=== PATIENT | male | born 1980 | race Caucasian/White ===

== ENCOUNTER 2017-01-25 17:00 | Inpatient (IN) | payer OTHER ==
[~2017-01-25] VITALS: Ht 177.8 cm; Wt 72.6 kg
--- NOTE | ~2017-01-25 | PN ---
Unit #: [id number] #: [id number] Patient: TON NEWBERRY [id number] [facility] [address] [place] [address] [id number] MR#: [id number] NAME: TON NEWBERRY ROOM: [facility] Age: 36 Sex: M Admission Date: 01/25/2017 : 1980 Attending Physician: Isidoro Hairston M.D. Admitting Physician: Isidoro Hairston M.D. Primary Care Physician: Generic Doctor Not In System [facility] PROGRESS NOTES DATE 01/27/2017 DISCUSSION Ton is a 36-year-old male, seen on 01/27/2017. The patient interviewed, chart reviewed, and obtained information from the nursing staff. The patient continues to be isolative, flat affect, sad, dysphoric. The patient reports medication is helping him but still sad and depressed. REVIEW OF SYSTEMS Complete review of systems unremarkable. MENTAL STATUS EXAMINATION General appearance: Patient dressed casually. Attention span and concentration, fair. Oriented in time, place, and person. Mood and affect, dysphoric, flat, passive SI, denied any homicidal ideation. Recent and remote memory, poor. Insight and judgment, poor. DIAGNOSES 1. Major depressive disorder, recurrent, severe. 2. Rule out bipolar mood disorder. 3. Amphetamine abuse, moderate. ASSESSMENT/PLAN Advised to continue with the current medication and therapeutic protocol, if needed consider further adjustment of medication. Dictated by... Yen Sylvester/keila TD: 01/29/2017 05:57 JOB #: [id number] Unit #: [id number] #: [id number] Patient: TON NEWBERRY PEAANGELLA PROGRESS NOTES Page 1 of 1 X Isidoro Hairston MD X PROGRESS NOTE
--- NOTE | ~2017-01-25 | PN ---
Unit #: [id number] #: [id number] Patient: TON NEWBERRY [id number] [facility] [address] [place] [address] [id number] I MR#: [id number] NAME: TON NEWBERRY ROOM: [facility] Age: 36 Sex: M Admission Date: 01/25/2017 : 1980 Attending Physician: Isidoro Hairston M.D. Admitting Physician: Isidoro Hairston M.D. Primary Care Physician: Generic Doctor Not In System [facility] PROGRESS NOTES DATE OF SERVICE 01/29/2017 DISCUSSION Ton Newberry is a 36-year-old male seen on 01/29/2017. Patient interviewed, chart reviewed. Obtained information from nursing staff. Patient was compliant and cooperative. Mood sad, dysphoric. Flat affect, guarded. Patient was able to maintain safe behavior. No aggression. Complete review of systems unremarkable. MENTAL STATUS EXAMINATION General appearance, patient dressed casually. Attention span and concentration fair. Oriented to time, place and person. Mood and affect labile. Speech monotone. Thought process concrete. Patient denied any thoughts of harming self or others. Recent and remote memory poor. Insight and judgement poor. DIAGNOSES 1. Major depressive disorder, recurrent severe. 2. Rule out bipolar mood disorder, amphetamine abuse disorder. ASSESSMENT/PLAN Advise to continue with current medication and therapeutic protocol. If needed consider further adjustment of medication. Dictated by... Yen Sylvester/waqas TD: 01/30/2017 23:38 JOB #: [id number] Unit #: [id number] #: [id number] Patient: TON NEWBERRY PROGRESS NOTES Page 1 of 1 X Isidoro Hairston MD PROGRESS NOTE
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
--- NOTE | ~2017-01-25 | PN ---
Unit #: [id number] #: [id number] Patient: FEDERICA NEWBERRY [id number] [facility] [address] [place] [address] [id number] I MR#: [id number] NAME: FEDERICA NEWBERRY ROOM: [facility] Age: 36 Sex: M Admission Date: 01/25/2017 : 1980 Attending Physician: Isidoro Hairston M.D. Admitting Physician: Isidoro Hairston M.D. Primary Care Physician: Generic Doctor Not In System [facility] PROGRESS NOTES DATE 01/27/2017 DISCUSSION Mr. Camilo is a 36-year-old male. The patient interviewed, chart reviewed, and obtained information from the nursing staff. The patient continues to report feeling sad, depressed, withdrawn, isolative, guarded. The patient still having passive SI. REVIEW OF SYSTEMS Complete review of systems unremarkable. MENTAL STATUS EXAMINATION General appearance: Patient dressed casually. Attention span and concentration, fair. Oriented in time, place, and person. Mood and affect, sad and depressed. Speech, monotone. Thought process, concrete. The patient reported having passive SI, denied any homicidal ideation, guarded. Recent and remote memory, poor. Insight and judgment, poor. DIAGNOSES 1. Major depressive disorder, recurrent, severe. 2. Rule out bipolar mood disorder. ASSESSMENT/PLAN Advised to continue with the current medication, if needed consider further adjustment of medication. Dictated by... Yen Sylvester/keila TD: 01/28/2017 11:04 JOB #: [id number] Unit #: [id number] #: [id number] Patient: FEDERICA NEWBERRY [facility] PROGRESS NOTES Page 1 of 1 X Isidoro Hairston MD PROGRESS NOTE
--- NOTE | ~2017-01-25 | HP ---
Unit #: [id number] #: [id number] Patient: FEDERICA NEWBERRY [id number] [place] [address] [id number] I MR#: [id number] NAME: FEDERICA NEWBERRY ROOM: [facility] Age: 36 Sex: M Admission Date: 01/25/2017 : 1980 Attending Physician: Isidoro Hairston M.D. Admitting Physician: Isidoro Hairston M.D. Primary Care Physician: Generic Doctor Not In System HISTORY AND PHYSICAL HISTORY OF PRESENT ILLNESS The patient is a 36-year-old male admitted to [address] [place] [address] on 01/25/2017 for methamphetamine abuse. PAST MEDICAL HISTORY 1. Recent right wrist laceration from punching a window. 2. Diabetes. 3. Hypertension. 4. GERD. PAST SURGICAL HISTORY 1. Splenectomy. 2. Tonsillectomy. 3. Right wrist debridement. SOCIAL HISTORY He is unemployed and homeless. He smokes 1/2 pack of cigarettes daily and uses methamphetamines on a daily basis. FAMILY MEDICAL HISTORY Noncontributory. ALLERGIES Lisinopril CURRENT MEDICATIONS 1. Gabapentin 2. Metformin 3. Metoprolol 4. Omeprazole 5. Clonidine 6. Ibuprofen 7. Vistaril 8. Zyprexa 9. Trazodone REVIEW OF SYSTEMS CONSTITUTIONAL: No fever or chills. HEENT: Denies any sore throat, ear pain or runny nose. CARDIOVASCULAR: Denies chest pain, irregular heart rhythm or palpitations. CHEST: Denies shortness of breath or cough. No hemoptysis. GASTROINTESTINAL: Denies nausea, vomiting, diarrhea or chronic constipation. Unit #: [id number] #: [id number] Patient: FEDERICA NEWBERRY ENDOCRINE: Denies history of increased thirst or urination. No recent significant weight loss or gain. GENITOURINARY: Denies dysuria, frequency, or hematuria. SKIN: Denies any rashes. HEMATOLOGIC: Denies history of increased bleeding or bruising. MUSCULOSKELETAL: Denies any hot, swollen joints. No generalized muscle pain. NEUROLOGIC: Denies problems with vision or speech. No frequent, severe headaches. No numbness, tingling or weakness in any extremities. Denies loss of bladder or bowel control. PHYSICAL EXAM GENERAL: He is awake, alert and oriented in no acute distress. VITAL SIGNS: Temperature 98.1, heart rate 88, respiration 18, blood pressure 140/76. HEIGHT: 5'10". WEIGHT: 160 pounds. SKIN: Warm and dry without rash or lesion. HEENT: Normocephalic. TMs not viewed. Oral and nasal passages clear. Conjunctivae clear. PERRLA. EOMs intact. NECK: Supple without lymphadenopathy or thyromegaly. HEART: Regular rate and rhythm without murmur. LUNGS: Clear. ABDOMEN: Soft, nontender. : Not done. EXTREMITIES: He has a cast wrapped in a VAN wrap on his right arm. NEUROLOGICAL: Grossly within normal limits. Cranial Nerves: II: Visual fountain are intact. III, IV AND : Extraocular movements are intact. Pupils are equal, round and reactive to light. V: Facial sensation is grossly normal. VII: Facial movements and expression are normal. VIII: Auditory acuity grossly intact. IX, X: Uvula is midline. Phonation is normal. XI: Patient shrugs shoulders and turns head normally. XII: Tongue protrudes in the midline. Sensory and Motor Function: Sensory and motor sensation is grossly normal. Motor: moves all extremities well. IMPRESSION 1. Psychiatric admission. 2. Methamphetamine abuse. 3. Nicotine dependence. 4. Right wrist laceration. 5. Diabetes. 6. Hypertension. 7. GERD. RECOMMENDATIONS Psychiatric per psychiatrist. MEDICAL: No contraindication to participate in facility activities. MEDICAL PROGNOSIS Fair. MEDICAL CONDITION Stable. Unit #: [id number] #: [id number] Patient: FEDERICA NEWBERRY Dictated by... Evie Storey/waqas TD: 01/27/2017 00:53 JOB #: [id number] HISTORY AND PHYSICAL Page 1 of 1 X BENEDICTO SIDHU APRN HISTORY AND PHYSICAL
--- NOTE | ~2017-01-25 | CO ---
Unit #: [id number] #: [id number] Patient: FEDERICA NEWBERRY [id number] [facility] [address] [place] [address] [id number] I MR#: [id number] NAME: FEDERICA NEWBERRY ROOM: [facility] Age: 36 Sex: M Admission Date: 01/25/2017 : 1980 Attending Physician: Isidoro Hairston M.D. Primary Care Physician: Chas Doctor Not In System Consultation Date: 01/26/2017 CONSULTATION REPORT ORDERING PROVIDER Dr. Hairston. REASON FOR CONSULTATION Diabetes, hypertension, and pain in his right arm. SUBJECTIVE The patient reports he is type 2 diabetic and has been on metformin for several years. He denies missing any doses. He cannot tell me when his last doctor's appointment was and does not know when his last A1c was done. He also reports that he has a blood pressure that is controlled on clonidine and metoprolol. Blood pressure on admission was 140/76. Finally, he reports that about 1 week ago, he punched his right arm through a window. He went to [facility], where x-rays were done and debridement was completed. He is supposed to follow up with a hand surgeon in a week. OBJECTIVE His right arm is casted with an Jonathan wrap around it, that was not removed. The remainder of his examination was unremarkable. Heart was regular rate and rhythm. Vital signs again show blood pressure of 140/76. This is on his medication. ASSESSMENT 1. Diabetes. 2. Hypertension. 3. Right arm injury. PLAN The patient was continued on his home medications of metformin, clonidine, and metoprolol. He will need follow up with the hand surgeon in one week and social work needs to get him that appointment. We will alternate ibuprofen and Tylenol for pain and cover the cast with a plastic bag to shower and otherwise keep it clean. Dictated by... Evie Storey/jemma TD: 01/27/2017 02:24 Unit #: [id number] #: [id number] Patient: FEDERICA NEWBERRY JOB #: [id number] CONSULTATION REPORT Page 1 of 1 X BENEDICTO SIDHU APRN CONSULTATION REPORT
--- NOTE | ~2017-01-25 | DS ---
Unit #: [id number] #: [id number] Patient: FEDERICA NEWBERRY [id number] [facility] [address] [place] [address] [id number] I MR#: [id number] NAME: FEDERICA NEWBERRY ROOM: [facility] Age: 36 Sex: M Admission Date: 01/25/2017 : 1980 Discharge Date: 01/30/2017 Attending Physician: Isidoro Hairston M.D. Primary Care Physician: Generic Doctor Not In System DISCHARGE SUMMARY REASON FOR ADMISSION Depression. DIAGNOSTIC STUDIES LABORATORY DATA: Unremarkable except urine drugs screen positive for amphetamine. HOSPITAL COURSE The patient was admitted to inpatient unit on January 25 and discharged on 01/30/2017. The patient was treated with group therapy, individual therapy, and medication management. The patient was responsive to treatment and showed improvement. Subsequently, the patient was discharged with a plan to follow up in outpatient program. DISCHARGE MEDICATIONS 1. Neurontin 600 mg 3 times a day for chronic pain. The patient was given 2 weeks' supply only. 2. Glucophage XL 500 mg twice daily for diabetes. 3. Lopressor 25 mg daily for hypertension. 4. Protonix 40 mg daily for GERD. 5. Catapres 0.3 mg 3 times a day for hypertension. 6. Motrin 600 mg 3 times a day for pain, 1-week supply. 7. Vistaril 25 mg 3 times a day for anxiety. 8. Zyprexa 10 mg at bedtime for mood stabilization. 9. Desyrel 50 mg at bedtime for sleep p.r.n. 10. Celexa 20 mg daily for depression. DISCHARGE DIAGNOSES PSYCHIATRIC: Major depressive disorder, recurrent, severe, F33.2 Amphetamine use disorder, severe, F15.20. SECONDARY: Deferred. MEDICAL: History of seizure disorder, diabetes, hypertension, gastroesophageal reflux disease. STRESSORS: Psychosocial stressor. FOLLOWUP CARE The patient to follow up in outpatient clinic as per social services analyst. CONDITION AT DISCHARGE The patient pleasant, cooperative. Denied any psychotic symptom or any suicidal ideation. PROGNOSIS Guarded. Unit #: [id number] #: [id number] Patient: FEDERICA NEWBERRY DIET AND ACTIVITY As tolerated. Dictated by... Isidoro Hairston M.D. SZRaissa/roni TD: 01/31/2017 10:14 JOB #: [id number] DISCHARGE SUMMARY Page 1 of 1 X Isidoro Hairston MD DISCHARGE SUMMARY
[2017-01-28 09:58] LABS: URINE APPEARANCE CLEAR; URINE BILIRUBIN NEG (NEG); URINE BLOOD NEG (NEG); URINE COLOR YELLOW; URINE GLUCOSE NEG (NEG); URINE KETONE NEG (NEG); URINE LEUKOCYTE ESTERASE NEG (NEG); URINE NITRATE NEG (NEG); URINE PH 5.5 (5-8); URINE PROTEIN NEG (NEG); URINE SPECIFIC GRAVITY 1.011 (1.003-1.035); URINE UROBILINOGEN 0.2 MG/DL (NEG)
[2017-01-28 11:26] LABS: AMPHETAMINE POS (NEG); BARBITURATES NEG (NEG); BENZODIAZEPINES NEG (NEG); COCAINE NEG (NEG); MARIJUANA NEG (NEG); OPIATES NEG (NEG); TRICYCLIC ANTIDEPRESSANTS NEG (NEG); U METHADONE NEG (NEG)
== END 2017-01-30 14:00 | disposition home or self-care (01) | DRG 885 ==
LOC: P2L 20:10
PROVIDERS: Psychiatry & Neurology Psychiatry
DX: F33.2 Major depressive disorder, recurrent severe without psychotic features (principal); F15.20 Other stimulant dependence, uncomplicated; R45.851 Suicidal ideations; G40.909 Epilepsy, unspecified, not intractable, without status epilepticus; E11.9 Type 2 diabetes mellitus without complications; I10 Essential (primary) hypertension; K21.9 Gastro-esophageal reflux disease without esophagitis; Z79.84 Long term (current) use of oral hypoglycemic drugs; F17.210 Nicotine dependence, cigarettes, uncomplicated; Z59.0 Homelessness; M79.601 Pain in right arm
CPT/HCPCS: 80307; 81003; 83036